=== PATIENT | male | born 1990 | race African-American/Black ===

== ENCOUNTER 2017-03-04 18:49 | Emergency (ER) | payer MEDICAID, OTHER ==
[~2017-03-04] VITALS: Ht 177.8 cm; Wt 68.0 kg
--- OUTSIDE RECORDS SUMMARY | 2017-03-04 18:55 | XMS REPORT ---
Author Author PACO WATSON [facility] Address [address] [place] [address] Care Team Providers Care Alarm Mechanism Adjuster Name Role Phone PACO WATSON Unavailable PROBLEMS Unknown Problems ALLERGIES Unknown Allergies SOCIAL HISTORY No smoking Hx information available PLAN OF CARE VITAL SIGNS MEDICATIONS Unknown Medications RESULTS No Results PROCEDURES No Known procedures IMMUNIZATIONS No Known Immunizations
--- OUTSIDE RECORDS SUMMARY | 2017-03-04 18:55 | XMS REPORT ---
Author Author PACO WATSON Organization [facility] Address [address] [place] [address] Care Team Providers Care Loss Prevention Representative Name Role Phone PACO WATSON Unavailable PROBLEMS Type Condition ICD9-CM Code [id number] Code Onset Dates Condition Status SNOMED Code Assessment Penile discharge R36.9 Feb, Active 7840510 Assessment Possible exposure to STD Z20.2 Feb, Active [id number] ALLERGIES Substance Reaction Event Type Date Status N.K.D.A. Unknown Non Drug Allergy Feb, Unknown SOCIAL HISTORY No smoking Hx information available PLAN OF CARE Activity Details Pending Test GC/CHLAM URINE (STATE) prn,Reason: VITAL SIGNS Weight 151.2 lbs 2016-03-02 Heart Rate 64 bpm 2016-03-02 Respiratory Rate 22 2016-03-02 Blood pressure systolic 122 mmHg 2016-03-02 Blood pressure diastolic 84 mmHg 2016-03-02 MEDICATIONS Unknown Medications RESULTS Name Result Date Reference Range GC/CHLAM URINE (STATE) 2016-03-03 CHLAMYDIA GC PROCEDURES Procedure Date Ordered Related Diagnosis Body Site No Charge Mar 02, 2016 Office Visit, Est Pt., Level 3 Mar 02, 2016 IMMUNIZATIONS No Known Immunizations
--- OUTSIDE RECORDS SUMMARY | 2017-03-04 18:55 | XMS REPORT ---
Author Author ALKA PAGAN [facility] Address [address] [place] [address] Care Team Providers Care Mattress Renovator Name Role Phone ALKA PAGAN Unavailable PROBLEMS Unknown Problems ALLERGIES Unknown Allergies SOCIAL HISTORY No smoking Hx information available PLAN OF CARE VITAL SIGNS MEDICATIONS Unknown Medications RESULTS No Results PROCEDURES No Known procedures IMMUNIZATIONS No Known Immunizations
[2017-03-04] MEDS ORDERED: RT-ALBUTEROL/IPRATROPIUM 3 ML (DUONEB) VIAL INH ONE (19:30)
[2017-03-04] MEDS ORDERED: RX-ALBUTEROL INHALER (PROAIR) 8 GM IH STA (20:31)
[2017-03-04] MEDS ORDERED: RT-ALBUINH IH (20:35)
[2017-03-04] MEDS ORDERED: PRD20T PO (20:35)
--- NOTE | 2017-03-04 20:35 | ED Respiratory ---
General Chief Complaint: Respiratory Problems Stated Complaint: SOB/COUGH Nursing Triage Note: SOA Source: patient, spouse Exam Limitations: no limitations History of Present Illness Time seen by provider: 20:16 Allergies and Home Medications Allergies Coded Allergies: No Known Drug Allergies (Unverified , 03/04/17) Home Medications No Active Prescriptions or Reported Meds Past Cliwxdn-Jnwfdn-Gzgpxz Hx Patient Social History Alcohol Use: Occasionally Uses Alcohol Beverage of Choice: Beer Recreational Drug Use: No Smoking Status: Never a Smoker 2nd Hand Smoke Exposure: No Recent Foreign Travel: No Contact w/Someone Who Travel: No Recent Infectious Disease Expo: No Recent Hopitalizations: No Immunizations Up To Date Tetanus Booster (TDap): Unknown PED Vaccines UTD: Yes Seasonal Allergies Seasonal Allergies: No Surgeries History of Surgeries: No Respiratory History of Respiratory Disorde: Yes Respiratory Disorders: Asthma Cardiovascular History of Cardiac Disorders: No Neurological History of Neurological Disord: No Genitourinary History of Genitourinary Disor: No Gastrointestinal History of Gastrointestinal Di: No Musculoskeletal History of Musculoskeletal Dis: No Endocrine History of Endocrine Disorders: No HEENT History of HEENT Disorders: No Cancer History of Cancer: No Psychosocial History of Psychiatric Problem: No Integumentary History of Skin or Integumenta: No Blood Transfusions History of Blood Disorders: No Physical Exam Vital Signs Vital Sign - Last 12Hours 03/04/17 19:10 Temp 98.4 Pulse 75 Resp 16 B/P (MAP) 146/97 (113) Pulse Ox 97 O2 Delivery Room Air Capillary Refill : Less Than 3 Seconds Progress/Results/Core Measures Suspected Sepsis Recent Fever Within 48 Hours: No Infection Criteria Present: None New/Unexplained Altered Menta: No Sepsis Screen: No Definite Risk Sepsis Diagnosis: SIRS Temperature:98.4 Pulse: 75 Respiratory Rate: 16 Blood Pressure 146 /97 Mean: 113 Results/Orders My Orders Orders - JOVANNA MALDONADO Albuterol/Ipra Inhalation Soln (Duoneb I (03/04/17 19:30) Svn Sm Volume Nebulizer Rt-Rfs (03/04/17 19:20) Chest Pa/Lat (2 View) (03/04/17 19:21) Rx-Albuterol Inhaler (Rx-Proair) (03/04/17 20:31) Prednisone Tablet (Deltasone Tablet) (03/04/17 20:45) Medications Given in ED Current Medications Medications Dose Ordered Sig/Marielle Route Start Time Stop Time Status Last Admin Dose Admin Albuterol/ Ipratropium 3 ml ONCE ONCE INH 03/04/17 19:30 03/04/17 19:31 DC 03/04/17 19:33 3 ML Vital Signs/I&O Vital Sign - Last 12Hours 03/04/17 19:10 Temp 98.4 Pulse 75 Resp 16 B/P (MAP) 146/97 (113) Pulse Ox 97 O2 Delivery Room Air Capillary Refill : Less Than 3 Seconds Blood Pressure Mean: 113 Departure Impression Impression: Primary Impression: Asthma attack Disposition: HOME, SELF-CARE Condition: Improved Departure-Patient Inst. Decision time for Depature: 20:33 Referrals: NO,LOCAL PHYSICIAN (PCP/Family) Primary Care Physician Patient Instructions: Asthma, Adult (DC) Add. Discharge Instructions: All discharge instructions reviewed with patient and/or family. Voiced understanding. Medications as instructed. Zyrtec, Claritin, or Deb over- the-counter as directed for allergies if needed. Follow-up with your primary care provider for recheck and outpatient if no improvement in symptoms. Return to the emergency department for worsened symptoms or any other concerns. Scripts Albuterol Sulfate (Proventil Hfa) 6.7 Gm Hfa.aer.ad 2 PUFF IH Q6H Y for SHORTNESS OF BREATH, #1 EACH 0 Refills Prov: JOVANNA MALDONADO 03/04/17 Prednisone (Prednisone) 20 Mg Tab 40 MG PO DAILY, #8 TAB 0 Refills Prov: JOVANNA MALDONADO 03/04/17 Work/School Note: Local Medical Staff Listing JOVANNA MALDONADO Mar 04, 2017 20:35
[2017-03-04 20:40] VITALS: BP 138/87
[2017-03-04] MEDS ORDERED: predniSONE 20 MG TAB PO ONE (20:45)
--- NOTE | 2017-03-04 21:06 | Diagnostic Imaging Report ---
PATIENT HISTORY: Chest tightness and pressure. TECHNIQUE: Two views of the chest. COMPARISON: None. FINDINGS: The lung volumes are normal. No focal consolidation is seen. No large pleural effusion or pneumothorax is seen. The cardiomediastinal silhouette is normal in size and contour. No acute osseous abnormality is seen. IMPRESSION: No acute pulmonary abnormality seen. Dictated by: Dictated on workstation # [id number]
== END 2017-03-04 20:40 | disposition home or self-care (01) ==
LOC: ER 18:53
DX: J45.901 Unspecified asthma with (acute) exacerbation (principal)
CPT/HCPCS: 71020; 99283